=== PATIENT | male | born 1965 | race Two or more races ===

== ENCOUNTER → 2018-02-07 | Outpatient (CLI) | payer OTHER ==
[~2018-02-07] MED LIST: BEN100 PO; CEP500 PO; CEPH-13 PO; CEPH500T7 PO; DIA5 PO; GLY5 PO; GLYBURIDE; JANUVIA; KEFLEX; LEVO25TA56 PO; LOR5/325 PO; MET500 PO; METFORMIN; OLM20 PO; PEN250 PO; PER PO; PRED-314 PO; SIMV-42 PO; SITA25TA5 PO
--- NOTE | 2018-02-07 17:03 | RADIOLOGY IMAGING REPORT ---
FACILITY: [facility] PATIENT NAME: Yosef White : 1965 MR: [id number] V: [id number] EXAM DATE: ORDERING PHYSICIAN: PILY GRANADO TECHNOLOGIST: Location: [facility] [place] Patient: Yosef White : 1965 Visit/Account:[id number] Date of Sevice: 02/07/2018 TESTICULAR HISTORY: Testicular pain for years COMPARISON: None. FINDINGS: Testes: Right testicle measures 3.7 x 1.7 x 2.8 cm. Left testicle measures 3 x 1.5 x 2.4 cm. Symmet leopoldo and unremarkable blood flow documented by color and Duplex Doppler ultrasound. Epididymides: The head of the epididymis on the right measures 6.1 mm and on the left 6.4 mm. There is a 2.6 mm cyst in the head of the epididymis on the left Blood flow is unremarkable in each epidid ymis by color Doppler ultrasound. Hydrocele: None. Varicocele: None. IMPRESSION: Unremarkable scrotal ultrasound other than an incidental tiny cyst in the head the epididymis on the left Report Dictated By: Anna Araiza MD at 02/07/2018 4:58 PM Report E-Signed By: Anna Araiza MD at 02/07/2018 5:00 PM WSN:[email or web address]
== END ==
LOC: US 01:21
PROVIDERS: ATTEND Urology
DX: N50.3 Cyst of epididymis (principal)
CPT/HCPCS: 76870

== ENCOUNTER 2018-07-07 01:38 | Day surgery (SDC) | payer OTHER ==
[~2018-07-07] VITALS: Ht 162.6 cm; Wt 58.5 kg
[~2018-07-07 01:38] MED LIST changes: +ACAR25TA PO; +PIOG30TA71 PO
[2018-07-07 06:36] VITALS: BP 142/88
[2018-07-07] MEDS ORDERED: NORMOSOL R SOLN(*) 1000 ML BAG 1,000 ML IV PRN (06:45)
[2018-07-07] MEDS ORDERED: LIDOCAINE/SOD BICARB 8.4% SYR ID ONE (06:45)
[2018-07-07] MEDS ORDERED: LIDOCAINE MPF 1% 5 ML VIAL ONE (07:24)
[2018-07-07] MEDS ORDERED: PROPOFOL EMUL(*) 10MG/ML 20 ML 40 ML ONE (07:24)
[2018-07-07 07:48] VITALS: BP 93/59
[2018-07-07 07:58] VITALS: BP 93/60
--- NOTE | 2018-07-07 08:09 | NUR ---
RN INTO ROOM TO ASSESS PT. RESTING. SPO2 94% ON RA.
[2018-07-07 08:30] VITALS: BP 109/77
[2018-07-07 08:31] VITALS: BP 118/85
== END 2018-07-07 08:45 | disposition home or self-care (01) ==
LOC: OR 01:38
PROVIDERS: ATTEND Family Medicine
DX: Z12.11 Encounter for screening for malignant neoplasm of colon (principal); E11.9 Type 2 diabetes mellitus without complications; E03.9 Hypothyroidism, unspecified; E78.5 Hyperlipidemia, unspecified; E88.81 Metabolic syndrome and other insulin resistance
CPT/HCPCS: 00812; 36416; 45378; 82948; J2001; J2704

== ENCOUNTER → 2018-10-04 | Outpatient (CLI) | payer OTHER ==
--- NOTE | 2018-10-04 17:11 | RADIOLOGY IMAGING REPORT ---
FACILITY: [facility] [place] PATIENT NAME: Yosef White : 1965 MR: [id number] V: [id number] EXAM DATE: ORDERING PHYSICIAN: GIGI NICKERSON TECHNOLOGIST: Location: [facility] Patient: Yosef White : 1965 Visit/Account:[id number] Date of Sevice: 10/04/2018 CHEST PA LAT History: Left-sided chest pain. FINDINGS: BB was placed over the area pain the left lower anterior chest. Comparison studies: Chest x-ray 09/07/2012 Tubes and Lines: None. Lungs and pleura: Well aerated. No evidence of focal consolidation or pleural effusions. Mediastinum: normal. Cardiac silhouette: normal . Osseous structures: Unremarkable for age . BB is placed over the anterior chest in the cartilagi nous portion of the ribs which are not radiographically visible. IMPRESSION: Negative exam Report Dictated By: Kofi Ulloa MD at 10/04/2018 5:05 PM Report E-Signed By: Kofi Ulloa MD at 10/04/2018 5:07 PM WSN:[email or web address]
== END ==
LOC: RAD 15:58
PROVIDERS: ATTEND Family Medicine
DX: R05 Cough (principal)
CPT/HCPCS: 71046

== ENCOUNTER → 2018-11-08 | Outpatient (CLI) | payer OTHER ==
[~2018-11-08] MED LIST changes: +ERTU1TAB3; +IOPAMIDOL 76% 150 ML INFUS BTL 150 ML ONE; +OMEP-218 PO
--- NOTE | 2018-11-08 16:41 | RADIOLOGY IMAGING REPORT ---
FACILITY: [facility] - [place] PATIENT NAME: Yosef White : 1965 MR: [id number] V: [id number] EXAM DATE: ORDERING PHYSICIAN: JOSE EDUARDO FREITAS TECHNOLOGIST: Location: [facility] [place] Patient: Yosef White : 1965 Visit/Account:[id number] Date of Sevice: 11/08/2018 EXAMINATION: CT neck with IV contrast HISTORY: Neoplasm of uncertain behavior of tongue, left tongue base lesion. COMPARISON: None. TECHNIQUE: Spiral scan was obtained from the hard palate through the upper chest during injection o f nonionic iodinated intravenous contrast. Sagittal and coronal reformatted images are also submitte d. CONTRAST: 75 mL of IV Isovue-[id number]. One of the following dose optimization techniques was utilized in the performance of this exam: Autom ated exposure control; adjustment of the mA and/or kV according to the patient's size; or use of an i terative reconstruction technique. Specific details can be referenced in the facility's radiology C T exam operational policy. FINDINGS: Masses/lesions: The oral cavity is partly obscured by dental hardware. There is no focal mass lesio n of the tongue base or elsewhere. Airway: Normal. Vessels: Mild atherosclerotic calcifications of the aortic arch. Vascular structures are patent. Musculoskeletal/body wall: There is elongation of both styloid processes, right greater than left, wi th ossification of stylohyoid ligament on the right measuring up to 7.3 cm. This articulates inferio rly with the hyoid bone on the right. Anterior cervical discectomy and fusion hardware at C4-5 is well-positioned without evidence of loose arnel. There is bony fusion across the disc. There is patchy, thin ossification of the posterior jerica gitudinal ligament from C2 through C7. Lymph nodes: Negative. Visualized orbits/brain/paranasal sinuses: Visualized intracranial contents are normal. There is mil d nasal septal deviation to the right. Upper chest: Negative. IMPRESSION: 1. Tongue base lesion is not identified by CT. 2. 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 3. Anterior cervical discectomy and fusion at C4-5 without evidence of hardware complication. Report Dictated By: Nohemy Gabriel MD at 11/08/2018 4:24 PM Report E-Signed By: Nohemy Gabriel MD at 11/08/2018 4:31 PM WSN:[id number]
== END ==
LOC: CT 07:27
PROVIDERS: ATTEND Physician Assistant
DX: D37.02 Neoplasm of uncertain behavior of tongue (principal)
CPT/HCPCS: 70491; Q9967